=== PATIENT | female | born 1940 | race Caucasian/White ===

== ENCOUNTER 2018-11-12 18:18 | Inpatient (IN) | payer MEDICARE, MEDICAID ==
[~2018-11-12] VITALS: Ht 162.6 cm; Wt 77.9 kg
[2018-11-12] MEDS ORDERED: MORPHINE SULFATE 4 MG/ML, 1ML IVPush PRN (18:30)
[2018-11-12] MEDS ORDERED: ONDANSETRON 2MG/ML, 2ML IVPush ONE (18:30)
[2018-11-12] MEDS ORDERED: SODIUM CHLORIDE FLUSH 10ML SYR IVF ONE (18:30)
[2018-11-12] MEDS ORDERED: PLEASE ENTER ALLERGIES MC SCH (19:00)
[2018-11-12 19:26] LABS: BASOPHILS # (AUTO) 0.04 x10^3/uL (0-0.1); BASOPHILS % (AUTO) 0 % (0-1); EOSINOPHILS # (AUTO) 0.38 x10^3/uL (0-0.4); EOSINOPHILS % (AUTO) 4 % (1-7); LYMPHOCYTES # (AUTO) 1.54 x10^3/uL (1-3.4); LYMPHOCYTES % (AUTO) 18 % (22-44); MD NO; MEAN CORPUSCULAR HEMOGLOBIN 28.7 pg (27.0-34.8); MEAN CORPUSCULAR HGB CONC 31.9 g/dL (32.4-35.8); MEAN CORPUSCULAR VOLUME 89.9 fL (80-100); MEAN PLATELET VOLUME 7.9 fL (7.4-10.4); MONOCYTES # (AUTO) 0.54 x10^3/uL (0.2-0.8); MONOCYTES % (AUTO) 6 % (2-9); NEUTROPHILS # (AUTO) 6.28 x10^3/uL (1.8-6.8); NEUTROPHILS % (AUTO) 72 % (42-75); PLATELET COUNT 291 x10^3/uL (130-400); RED BLOOD COUNT 3.93 x10^6/uL (3.82-5.3); RED CELL DISTRIBUTION WIDTH 15.9 % (9.6-15.2)
[2018-11-12 19:33] LABS: INTERNATIONAL NORMALIZED RATIO 0.96 (0.93-1.1); PROTHROMBIN TIME 10.2 Seconds (9.6-11.5)
[2018-11-12 19:35] LABS: ALANINE AMINOTRANSFERASE 15 U/L (12-78); ALBUMIN 3.6 g/dL (3.4-5.0); ANION GAP 5 mmol/L (5-15); CALCIUM 9.2 mg/dL (8.5-10.1); CHLORIDE 98 mmol/L (98-107); CREATININE 0.92 mg/dL (0.55-1.02)
[2018-11-12 19:37] LABS: ALKALINE PHOSPHATASE 94 U/L (45-117); BILIRUBIN,TOTAL 0.2 mg/dL (0.2-1.0); TOTAL PROTEIN 7.4 g/dL (6.4-8.2)
[2018-11-12] MEDS ORDERED: MORPHINE SULFATE 4 MG/ML, 1ML ONE (20:16)
[2018-11-12] MEDS ORDERED: ONDANSETRON 2MG/ML, 2ML ONE (20:16)
[2018-11-12 22:00] VITALS: BP 106/67
[2018-11-12] MEDS ORDERED: CARB1TAB47 PO (22:04)
[2018-11-12] MEDS ORDERED: DONE10TA14 PO (22:04)
[2018-11-12] MEDS ORDERED: OLME20TA17 PO (22:04)
[2018-11-12] MEDS ORDERED: POTA20TA14 PO (22:04)
[2018-11-12] MEDS ORDERED: INSU100V8 SQ (22:04)
[2018-11-12] MEDS ORDERED: LAMO150T2 PO (22:04)
[2018-11-12] MEDS ORDERED: BUDE10.2 INH (22:04)
[2018-11-12] MEDS ORDERED: ALBU2.5V11 NEB (22:04)
[2018-11-12] MEDS ORDERED: LEVO25TA4 PO (22:04)
[2018-11-12] MEDS ORDERED: FURO40TA6 PO (22:04)
[2018-11-12] MEDS ORDERED: ASPI-650 PO (22:04)
[2018-11-12] MEDS ORDERED: UMEC62.5 INH (22:04)
[2018-11-12] MEDS ORDERED: VALS160T3 PO (22:04)
[2018-11-12] MEDS ORDERED: PREG75CA PO (22:04)
[2018-11-12] MEDS ORDERED: ALBU18HF INH (22:04)
[2018-11-12] MEDS ORDERED: PARO40TA61 PO (22:04)
[2018-11-12] MEDS ORDERED: FERR240T2 PO (22:04)
[2018-11-12] MEDS ORDERED: ONDANSETRON ODT 4 MG PO PRN (22:30)
[2018-11-12] MEDS ORDERED: DOCUSATE 100 MG CAPSULE PO PRN (22:30)
[2018-11-12] MEDS ORDERED: LIDODERM 5% PATCH TD PRN (22:30)
[2018-11-12] MEDS ORDERED: hydrALAzine 20 MG/ML, 1ML IVPush PRN (22:30)
[2018-11-12] MEDS ORDERED: ENALAPRILAT 1.25 MG/ML, 2ML IV PRN (22:30)
[2018-11-12] MEDS: DEXTROSE 50%, 50ML SYRINGE IVPush PRN ×2 (23:00→23:15)
[2018-11-12] MEDS ORDERED: DEXTROSE 50%, 50ML SYRINGE ONE (23:06)
[2018-11-13] VITALS (10 sets, daily range): BP systolic 90–113; BP diastolic 56–71
[2018-11-13] MEDS ORDERED: DEXTROSE 4 GM TAB.CHEW PO PRN
[2018-11-13] MEDS ORDERED: GLUCAGON 1 MG IM PRN
[2018-11-13] MEDS ORDERED: TEMPLATE NON-FORMULARY MED. (Albuterol Sulfate (Ventolin Hfa) 90 MCG) INH PRN (00:30)
[2018-11-13] MEDS ORDERED: ALBUTEROL SULFATE 2.5MG/0.5ML NEB PRN (00:30)
[2018-11-13] MEDS ORDERED: ALBUTEROL/IPRATROPIUM 2.5MG/0.5MG, 3 ML NPPB SCH (01:00)
[2018-11-13] MEDS ORDERED: SODIUM CHLORIDE 0.9% 1,000 ML IV ONE (01:00)
[2018-11-13] MEDS: CARBIDOPA/LEVODOPA 25 MG/100 MG TABLET PO SCH ×4 (01:05→21:41)
[2018-11-13] MEDS: DONEPEZIL 10 MG TABLET PO SCH ×2 (01:05→21:41)
[2018-11-13] MEDS: SODIUM CHLORIDE FLUSH 10ML SYR IVF SCH ×3 (01:05→21:42)
[2018-11-13] MEDS: OLMESARTAN MC SCH ×2 (01:30→09:00)
[2018-11-13] MEDS: PAROXETINE MC SCH ×2 (01:30→09:00)
[2018-11-13] MEDS: HYDROcodone/APAP 5/325 TABLET PO PRN ×3 (01:33→18:12)
[2018-11-13] MEDS: ALBUTEROL/IPRATROPIUM 2.5MG/0.5MG, 3 ML NPPB SCH ×4 (03:00→21:00)
[2018-11-13 05:55] LABS: BASOPHILS # (AUTO) 0.04 x10^3/uL (0-0.1); BASOPHILS % (AUTO) 1 % (0-1); CHLORIDE 98 mmol/L (98-107); EOSINOPHILS # (AUTO) 0.34 x10^3/uL (0-0.4); EOSINOPHILS % (AUTO) 5 % (1-7); LYMPHOCYTES # (AUTO) 1.11 x10^3/uL (1-3.4); LYMPHOCYTES % (AUTO) 15 % (22-44); MD NO; MEAN CORPUSCULAR HEMOGLOBIN 28.7 pg (27.0-34.8); MEAN CORPUSCULAR HGB CONC 32.1 g/dL (32.4-35.8); MEAN CORPUSCULAR VOLUME 89.6 fL (80-100); MEAN PLATELET VOLUME 7.6 fL (7.4-10.4); MONOCYTES # (AUTO) 0.59 x10^3/uL (0.2-0.8); MONOCYTES % (AUTO) 8 % (2-9); NEUTROPHILS # (AUTO) 5.46 x10^3/uL (1.8-6.8); NEUTROPHILS % (AUTO) 72 % (42-75); PLATELET COUNT 276 x10^3/uL (130-400); RED BLOOD COUNT 3.23 x10^6/uL (3.82-5.3); RED CELL DISTRIBUTION WIDTH 15.4 % (9.6-15.2)
[2018-11-13] MEDS: DEXTROSE 50%, 50ML SYRINGE IVPush PRN ×3 (05:56→16:33)
[2018-11-13] MEDS: LEVOTHYROXINE 25 MCG TABLET PO SCH (05:59)
[2018-11-13 06:03] LABS: ANION GAP 6 mmol/L (5-15); CALCIUM 8.4 mg/dL (8.5-10.1); CHOL/HDL RATIO 2.8; CHOLESTEROL, TOTAL 197 mg/dL (140-239); CREATININE 1.61 mg/dL (0.55-1.02); HDL CHOL % 36 % (28-40); HDL CHOLESTEROL (DIRECT) 71 mg/dL (40-60); LDL CHOLESTEROL,CALCULATED 97 mg/dL (54-169); LDL/HDL RATIO 1.4 (0.5-3.0); TRIGLYCERIDES 144 mg/dL (50-200); VLDL CHOLESTEROL 29 mg/dL (0-25)
[2018-11-13] MEDS: BUDESONIDE 0.5 MG/2 ML INHA NPPB SCH ×2 (08:20→21:00)
[2018-11-13] MEDS ORDERED: UMECLIDINIUM BROMIDE 62.5 MCG INH SCH (09:00)
[2018-11-13] MEDS ORDERED: PAROXETINE 10 MG TABLET PO SCH (09:00)
[2018-11-13] MEDS: PREGABALIN 75 MG CAPSULE PO SCH ×2 (09:00→21:41)
[2018-11-13] MEDS ORDERED: LOSARTAN 50MG TABLET PO SCH (09:00)
[2018-11-13] MEDS: ASPIRIN 81 MG TABLET CHEW PO/NG SCH (09:00)
[2018-11-13] MEDS ORDERED: TEMPLATE NON-FORMULARY MED. (Budesonide/Formoterol Fumarate (Symbicort 160-4.5 Mcg Inhaler INH SCH (09:00)
[2018-11-13] MEDS: VALSARTAN 160 MG TABLET PO SCH (09:00)
[2018-11-13] MEDS: LAMOTRIGINE 100 MG TABLET PO SCH ×2 (09:00→21:41)
[2018-11-13] MEDS: POTASSIUM CHLORIDE 20 MEQ TAB.ER.PRT PO SCH (09:00)
[2018-11-13] MEDS: FUROSEMIDE 40 MG TABLET PO SCH (09:00)
[2018-11-13] MEDS: FERROUS GLUCONATE 324 MG TABLET PO SCH (12:00)
[2018-11-13] MEDS: PAXIL MC SCH ×2 (14:18→22:18)
[2018-11-13] MEDS ORDERED: D5%-0.9% NACL 1,000 ML IV SCH (16:30)
[2018-11-13] MEDS: ACETAMINOPHEN 325 MG TABLET PO PRN (16:40)
[2018-11-13] MEDS: D5%-0.9% NACL 1,000 ML IV SCH (16:41)
[2018-11-14 00:55] VITALS: BP 139/63
[2018-11-14] MEDS: ALBUTEROL/IPRATROPIUM 2.5MG/0.5MG, 3 ML NPPB SCH ×4 (03:00→22:08)
[2018-11-14] MEDS: LEVOTHYROXINE 25 MCG TABLET PO SCH (05:12)
[2018-11-14 06:11] LABS: BASOPHILS # (AUTO) 0.02 x10^3/uL (0-0.1); BASOPHILS % (AUTO) 0 % (0-1); EOSINOPHILS # (AUTO) 0.22 x10^3/uL (0-0.4); EOSINOPHILS % (AUTO) 3 % (1-7); LYMPHOCYTES % (AUTO) 10 % (22-44); MD NO; MEAN CORPUSCULAR HEMOGLOBIN 28.7 pg (27.0-34.8); MEAN CORPUSCULAR HGB CONC 32.4 g/dL (32.4-35.8); MEAN CORPUSCULAR VOLUME 88.5 fL (80-100); MEAN PLATELET VOLUME 7.3 fL (7.4-10.4); MONOCYTES # (AUTO) 0.37 x10^3/uL (0.2-0.8); MONOCYTES % (AUTO) 5 % (2-9); NEUTROPHILS # (AUTO) 6.63 x10^3/uL (1.8-6.8); NEUTROPHILS % (AUTO) 82 % (42-75); PLATELET COUNT 248 x10^3/uL (130-400); RED BLOOD COUNT 3.34 x10^6/uL (3.82-5.3); RED CELL DISTRIBUTION WIDTH 15.8 % (9.6-15.2)
[2018-11-14] MEDS: D5%-0.9% NACL 1,000 ML IV SCH (06:17)
[2018-11-14] MEDS: PAXIL MC SCH ×2 (06:18→14:17)
[2018-11-14 06:24] LABS: ANION GAP 1 mmol/L (5-15); CHLORIDE 102 mmol/L (98-107)
[2018-11-14] MEDS: BUDESONIDE 0.5 MG/2 ML INHA NPPB SCH ×2 (07:15→22:08)
[2018-11-14 07:30] VITALS: BP 120/66
[2018-11-14] MEDS ORDERED: KETOROLAC 30 MG/1 ML IVPush PRN (07:30)
[2018-11-14] MEDS: ASPIRIN 81 MG TABLET CHEW PO/NG SCH (09:00)
[2018-11-14] MEDS: CARBIDOPA/LEVODOPA 25 MG/100 MG TABLET PO SCH ×3 (09:07→20:55)
[2018-11-14] MEDS: SODIUM CHLORIDE FLUSH 10ML SYR IVF SCH ×2 (09:07→20:30)
[2018-11-14] MEDS: POTASSIUM CHLORIDE 20 MEQ TAB.ER.PRT PO SCH (09:08)
[2018-11-14] MEDS: FUROSEMIDE 40 MG TABLET PO SCH (09:08)
[2018-11-14] MEDS: VALSARTAN 160 MG TABLET PO SCH (09:08)
[2018-11-14] MEDS: PREGABALIN 75 MG CAPSULE PO SCH ×2 (09:08→20:56)
[2018-11-14] MEDS: LAMOTRIGINE 100 MG TABLET PO SCH ×2 (09:08→20:55)
[2018-11-14] MEDS: FERROUS GLUCONATE 324 MG TABLET PO SCH (13:04)
[2018-11-14] MEDS ORDERED: PAXIL MC SCH (15:00)
[2018-11-14 15:08] VITALS: BP 124/66
[2018-11-14] MEDS: ACETAMINOPHEN 325 MG TABLET PO PRN (17:04)
[2018-11-14 20:00] VITALS: BP 149/71
[2018-11-14] MEDS: DONEPEZIL 10 MG TABLET PO SCH (20:54)
[2018-11-14] MEDS: PAROXETINE 10 MG TABLET PO SCH (20:55)
[2018-11-15 02:00] VITALS: BP 152/74
[2018-11-15] MEDS: ACETAMINOPHEN 325 MG TABLET PO PRN ×2 (02:24→14:43)
[2018-11-15] MEDS: ALBUTEROL/IPRATROPIUM 2.5MG/0.5MG, 3 ML NPPB SCH ×4 (03:40→20:53)
[2018-11-15 04:49] LABS: BASOPHILS # (AUTO) 0.03 x10^3/uL (0-0.1); BASOPHILS % (AUTO) 0 % (0-1); EOSINOPHILS # (AUTO) 0.38 x10^3/uL (0-0.4); EOSINOPHILS % (AUTO) 5 % (1-7); LYMPHOCYTES % (AUTO) 14 % (22-44); MD NO; MEAN CORPUSCULAR HEMOGLOBIN 28.8 pg (27.0-34.8); MEAN CORPUSCULAR HGB CONC 32.4 g/dL (32.4-35.8); MEAN PLATELET VOLUME 7.8 fL (7.4-10.4); MONOCYTES # (AUTO) 0.58 x10^3/uL (0.2-0.8); MONOCYTES % (AUTO) 8 % (2-9); NEUTROPHILS # (AUTO) 5.62 x10^3/uL (1.8-6.8); NEUTROPHILS % (AUTO) 73 % (42-75); PLATELET COUNT 222 x10^3/uL (130-400); RED BLOOD COUNT 3.34 x10^6/uL (3.82-5.3); RED CELL DISTRIBUTION WIDTH 15.4 % (9.6-15.2)
[2018-11-15 04:56] LABS: ANION GAP 5 mmol/L (5-15); CALCIUM 8.4 mg/dL (8.5-10.1); CHLORIDE 102 mmol/L (98-107); CREATININE 0.61 mg/dL (0.55-1.02)
[2018-11-15] MEDS: LEVOTHYROXINE 25 MCG TABLET PO SCH (06:10)
[2018-11-15] MEDS: BUDESONIDE 0.5 MG/2 ML INHA NPPB SCH ×2 (07:45→20:53)
[2018-11-15 08:18] VITALS: BP 151/76
[2018-11-15] MEDS: PREGABALIN 75 MG CAPSULE PO SCH ×2 (08:55→21:22)
[2018-11-15] MEDS: ASPIRIN 81 MG TABLET CHEW PO/NG SCH (08:55)
[2018-11-15] MEDS: CARBIDOPA/LEVODOPA 25 MG/100 MG TABLET PO SCH ×3 (08:55→21:22)
[2018-11-15] MEDS: VALSARTAN 160 MG TABLET PO SCH (08:56)
[2018-11-15] MEDS: PAROXETINE 10 MG TABLET PO SCH ×2 (08:56→21:22)
[2018-11-15] MEDS: POTASSIUM CHLORIDE 20 MEQ TAB.ER.PRT PO SCH (08:56)
[2018-11-15] MEDS: FUROSEMIDE 40 MG TABLET PO SCH (08:56)
[2018-11-15] MEDS: SODIUM CHLORIDE FLUSH 10ML SYR IVF SCH ×2 (08:57→21:23)
[2018-11-15] MEDS: LAMOTRIGINE 100 MG TABLET PO SCH ×2 (08:57→21:23)
[2018-11-15] MEDS: FERROUS GLUCONATE 324 MG TABLET PO SCH (12:50)
[2018-11-15] MEDS: INSULIN LISPRO 100 UNITS/ML, PEN SQ-INSULIN SCH ×3 (12:51→21:32)
[2018-11-15 14:46] VITALS: BP 151/80
[2018-11-15] MEDS: HYDROcodone/APAP 5/325 TABLET PO PRN ×2 (16:37→21:30)
[2018-11-15] MEDS: DONEPEZIL 10 MG TABLET PO SCH (21:22)
[2018-11-15 21:35] VITALS: BP 131/72
[2018-11-16 02:50] VITALS: BP 94/60
[2018-11-16] MEDS: ALBUTEROL/IPRATROPIUM 2.5MG/0.5MG, 3 ML NPPB SCH ×4 (02:55→21:30)
[2018-11-16] MEDS: LEVOTHYROXINE 25 MCG TABLET PO SCH (05:40)
[2018-11-16 05:41] VITALS: BP 110/69
[2018-11-16 06:02] LABS: BASOPHILS # (AUTO) 0.04 x10^3/uL (0-0.1); BASOPHILS % (AUTO) 1 % (0-1); EOSINOPHILS # (AUTO) 0.32 x10^3/uL (0-0.4); EOSINOPHILS % (AUTO) 5 % (1-7); LYMPHOCYTES # (AUTO) 1.14 x10^3/uL (1-3.4); LYMPHOCYTES % (AUTO) 18 % (22-44); MD NO; MEAN CORPUSCULAR HEMOGLOBIN 28.9 pg (27.0-34.8); MEAN CORPUSCULAR HGB CONC 32.4 g/dL (32.4-35.8); MEAN CORPUSCULAR VOLUME 89.2 fL (80-100); MEAN PLATELET VOLUME 7.8 fL (7.4-10.4); MONOCYTES # (AUTO) 0.43 x10^3/uL (0.2-0.8); MONOCYTES % (AUTO) 7 % (2-9); NEUTROPHILS # (AUTO) 4.52 x10^3/uL (1.8-6.8); NEUTROPHILS % (AUTO) 70 % (42-75); PLATELET COUNT 230 x10^3/uL (130-400); RED BLOOD COUNT 3.32 x10^6/uL (3.82-5.3); RED CELL DISTRIBUTION WIDTH 15.6 % (9.6-15.2)
[2018-11-16 06:08] LABS: ANION GAP 3 mmol/L (5-15); CHLORIDE 99 mmol/L (98-107); CREATININE 0.67 mg/dL (0.55-1.02)
[2018-11-16] MEDS: BUDESONIDE 0.5 MG/2 ML INHA NPPB SCH ×2 (07:35→21:30)
[2018-11-16 07:52] VITALS: BP 123/66
[2018-11-16] MEDS: INSULIN LISPRO 100 UNITS/ML, PEN SQ-INSULIN SCH ×4 (08:48→21:01)
[2018-11-16] MEDS: CARBIDOPA/LEVODOPA 25 MG/100 MG TABLET PO SCH ×3 (08:48→21:02)
[2018-11-16] MEDS: VALSARTAN 160 MG TABLET PO SCH (08:48)
[2018-11-16] MEDS: FUROSEMIDE 40 MG TABLET PO SCH (08:49)
[2018-11-16] MEDS: POTASSIUM CHLORIDE 20 MEQ TAB.ER.PRT PO SCH (08:49)
[2018-11-16] MEDS: PREGABALIN 75 MG CAPSULE PO SCH ×2 (08:49→21:01)
[2018-11-16] MEDS: LAMOTRIGINE 100 MG TABLET PO SCH ×2 (08:49→21:02)
[2018-11-16] MEDS: PAROXETINE 10 MG TABLET PO SCH ×2 (08:49→21:01)
[2018-11-16] MEDS: ASPIRIN 81 MG TABLET CHEW PO/NG SCH (08:49)
[2018-11-16] MEDS: SODIUM CHLORIDE FLUSH 10ML SYR IVF SCH ×2 (08:50→21:03)
[2018-11-16] MEDS: FERROUS GLUCONATE 324 MG TABLET PO SCH (11:29)
[2018-11-16 14:00] VITALS: BP 111/66
[2018-11-16 20:00] VITALS: BP 119/67
[2018-11-16] MEDS: DONEPEZIL 10 MG TABLET PO SCH (21:02)
[2018-11-16] MEDS: HYDROcodone/APAP 5/325 TABLET PO PRN (22:58)
[2018-11-17 02:14] VITALS: BP 125/68
[2018-11-17] MEDS: ALBUTEROL/IPRATROPIUM 2.5MG/0.5MG, 3 ML NPPB SCH ×4 (02:59→20:30)
[2018-11-17] MEDS: HYDROcodone/APAP 5/325 TABLET PO PRN ×2 (06:03→21:45)
[2018-11-17] MEDS: LEVOTHYROXINE 25 MCG TABLET PO SCH (06:05)
[2018-11-17 06:23] LABS: ANION GAP 3 mmol/L (5-15); CALCIUM 9.1 mg/dL (8.5-10.1); CHLORIDE 101 mmol/L (98-107); CREATININE 0.81 mg/dL (0.55-1.02)
[2018-11-17 06:29] VITALS: BP 129/71
[2018-11-17] MEDS: BUDESONIDE 0.5 MG/2 ML INHA NPPB SCH ×2 (07:30→20:40)
[2018-11-17] MEDS: SODIUM CHLORIDE FLUSH 10ML SYR IVF SCH ×2 (09:00→21:48)
[2018-11-17] MEDS: CARBIDOPA/LEVODOPA 25 MG/100 MG TABLET PO SCH ×3 (09:18→21:47)
[2018-11-17] MEDS: PAROXETINE 10 MG TABLET PO SCH ×2 (09:18→21:46)
[2018-11-17] MEDS: VALSARTAN 160 MG TABLET PO SCH (09:18)
[2018-11-17] MEDS: ASPIRIN 81 MG TABLET CHEW PO/NG SCH (09:19)
[2018-11-17] MEDS: PREGABALIN 75 MG CAPSULE PO SCH ×2 (09:19→21:47)
[2018-11-17] MEDS: POTASSIUM CHLORIDE 20 MEQ TAB.ER.PRT PO SCH (09:19)
[2018-11-17] MEDS: LAMOTRIGINE 100 MG TABLET PO SCH ×2 (09:20→21:47)
[2018-11-17] MEDS: FUROSEMIDE 40 MG TABLET PO SCH (09:20)
[2018-11-17] MEDS: INSULIN LISPRO 100 UNITS/ML, PEN SQ-INSULIN SCH ×4 (09:21→21:49)
[2018-11-17 12:05] VITALS: BP 139/72
[2018-11-17] MEDS: FERROUS GLUCONATE 324 MG TABLET PO SCH (12:08)
[2018-11-17 20:00] VITALS: BP 148/72
[2018-11-17] MEDS ORDERED: INSULIN GLARGINE 100 UNITS/ML, PEN SQ-INSULIN SCH ×2 (21:00)
[2018-11-17] MEDS: DONEPEZIL 10 MG TABLET PO SCH (21:46)
[2018-11-18 02:00] VITALS: BP 149/76
[2018-11-18] MEDS: ALBUTEROL/IPRATROPIUM 2.5MG/0.5MG, 3 ML NPPB SCH ×4 (02:57→21:20)
[2018-11-18] MEDS: HYDROcodone/APAP 5/325 TABLET PO PRN (06:18)
[2018-11-18] MEDS: LEVOTHYROXINE 25 MCG TABLET PO SCH (06:18)
[2018-11-18 06:19] LABS: BASOPHILS # (AUTO) 0.06 x10^3/uL (0-0.1); BASOPHILS % (AUTO) 1 % (0-1); EOSINOPHILS # (AUTO) 0.35 x10^3/uL (0-0.4); EOSINOPHILS % (AUTO) 6 % (1-7); LYMPHOCYTES # (AUTO) 1.09 x10^3/uL (1-3.4); LYMPHOCYTES % (AUTO) 17 % (22-44); MD NO; MEAN CORPUSCULAR HEMOGLOBIN 28.5 pg (27.0-34.8); MEAN CORPUSCULAR HGB CONC 31.8 g/dL (32.4-35.8); MEAN CORPUSCULAR VOLUME 89.5 fL (80-100); MEAN PLATELET VOLUME 7.4 fL (7.4-10.4); MONOCYTES # (AUTO) 0.49 x10^3/uL (0.2-0.8); MONOCYTES % (AUTO) 8 % (2-9); NEUTROPHILS # (AUTO) 4.37 x10^3/uL (1.8-6.8); NEUTROPHILS % (AUTO) 69 % (42-75); PLATELET COUNT 283 x10^3/uL (130-400); RED BLOOD COUNT 3.47 x10^6/uL (3.82-5.3); RED CELL DISTRIBUTION WIDTH 15.7 % (9.6-15.2)
[2018-11-18 06:19] LABS: ANION GAP 3 mmol/L (5-15); CALCIUM 9.2 mg/dL (8.5-10.1); CHLORIDE 100 mmol/L (98-107)
[2018-11-18 06:20] LABS: CREATININE 0.73 mg/dL (0.55-1.02)
[2018-11-18 06:23] VITALS: BP 134/71
[2018-11-18] MEDS: BUDESONIDE 0.5 MG/2 ML INHA NPPB SCH ×2 (07:55→21:20)
[2018-11-18] MEDS: LAMOTRIGINE 100 MG TABLET PO SCH ×2 (08:52→22:14)
[2018-11-18] MEDS: ASPIRIN 81 MG TABLET CHEW PO/NG SCH (08:53)
[2018-11-18] MEDS: CARBIDOPA/LEVODOPA 25 MG/100 MG TABLET PO SCH ×3 (08:53→22:12)
[2018-11-18] MEDS: PREGABALIN 75 MG CAPSULE PO SCH ×2 (08:53→22:19)
[2018-11-18] MEDS: VALSARTAN 160 MG TABLET PO SCH (08:54)
[2018-11-18] MEDS: POTASSIUM CHLORIDE 20 MEQ TAB.ER.PRT PO SCH (08:54)
[2018-11-18] MEDS: FUROSEMIDE 40 MG TABLET PO SCH (08:55)
[2018-11-18] MEDS: PAROXETINE 10 MG TABLET PO SCH ×2 (08:55→22:13)
[2018-11-18] MEDS: SODIUM CHLORIDE FLUSH 10ML SYR IVF SCH ×2 (08:58→21:00)
[2018-11-18] MEDS: INSULIN LISPRO 100 UNITS/ML, PEN SQ-INSULIN SCH ×4 (09:00→22:20)
[2018-11-18] MEDS: FERROUS GLUCONATE 324 MG TABLET PO SCH (12:17)
[2018-11-18 12:30] VITALS: BP 108/64
[2018-11-18 20:00] VITALS: BP 117/63
[2018-11-18] MEDS ORDERED: INSULIN GLARGINE 100 UNITS/ML, PEN SQ-INSULIN SCH (21:00)
[2018-11-18] MEDS: DONEPEZIL 10 MG TABLET PO SCH (22:20)
[2018-11-19 02:00] VITALS: BP 118/66
[2018-11-19] MEDS: ALBUTEROL/IPRATROPIUM 2.5MG/0.5MG, 3 ML NPPB SCH ×2 (02:20→07:20)
[2018-11-19] MEDS: ACETAMINOPHEN 325 MG TABLET PO PRN (05:40)
[2018-11-19] MEDS: LEVOTHYROXINE 25 MCG TABLET PO SCH (05:40)
[2018-11-19 07:00] VITALS: BP 133/75
[2018-11-19] MEDS: INSULIN LISPRO 100 UNITS/ML, PEN SQ-INSULIN SCH ×3 (07:00→16:02)
[2018-11-19] MEDS: BUDESONIDE 0.5 MG/2 ML INHA NPPB SCH (07:20)
[2018-11-19] MEDS: FUROSEMIDE 40 MG TABLET PO SCH (07:45)
[2018-11-19] MEDS: CARBIDOPA/LEVODOPA 25 MG/100 MG TABLET PO SCH ×2 (07:45→16:04)
[2018-11-19] MEDS: PREGABALIN 75 MG CAPSULE PO SCH (07:45)
[2018-11-19] MEDS: POTASSIUM CHLORIDE 20 MEQ TAB.ER.PRT PO SCH (07:45)
[2018-11-19] MEDS: LAMOTRIGINE 100 MG TABLET PO SCH (07:45)
[2018-11-19] MEDS: ASPIRIN 81 MG TABLET CHEW PO/NG SCH (07:45)
[2018-11-19] MEDS: SODIUM CHLORIDE FLUSH 10ML SYR IVF SCH (07:46)
[2018-11-19] MEDS: VALSARTAN 160 MG TABLET PO SCH (07:46)
[2018-11-19] MEDS: PAROXETINE 10 MG TABLET PO SCH (07:47)
[2018-11-19] MEDS: FERROUS GLUCONATE 324 MG TABLET PO SCH (12:04)
[2018-11-19 13:09] VITALS: BP 106/51
[2018-11-19] MEDS ORDERED: INSU100I13 SQ-INSULIN (14:57)
[2018-11-19] MEDS ORDERED: ALBUTEROL/IPRATROPIUM 2.5MG/0.5MG, 3 ML NPPB PRN (15:00)
[2018-11-19] MEDS ORDERED: ASPI-515 PO/NG (15:07)
== END 2018-11-19 18:19 | DRG 154 ==
LOC: ED 21:18 → EDIP 21:19 → ED 21:27 → 4EST 22:12
PROVIDERS: ADMIT Internal Medicine; ATTEND Internal Medicine
DX: S02.2XXA Fracture of nasal bones, initial encounter for closed fracture (principal); J96.20 Acute and chronic respiratory failure, unspecified whether with hypoxia or hypercapnia; F33.1 Major depressive disorder, recurrent, moderate; G40.909 Epilepsy, unspecified, not intractable, without status epilepticus; G20 Parkinson's disease; I25.10 Atherosclerotic heart disease of native coronary artery without angina pectoris; J44.9 Chronic obstructive pulmonary disease, unspecified; E11.649 Type 2 diabetes mellitus with hypoglycemia without coma; F03.90 Unspecified dementia, unspecified severity, without behavioral disturbance, psychotic disturbance, mood disturbance, and anxiety; R29.6 Repeated falls; E03.9 Hypothyroidism, unspecified; I11.9 Hypertensive heart disease without heart failure; S00.01XA Abrasion of scalp, initial encounter; I35.0 Nonrheumatic aortic (valve) stenosis; R13.10 Dysphagia, unspecified; G89.11 Acute pain due to trauma; W18.30XA Fall on same level, unspecified, initial encounter; Y93.89 Activity, other specified; Y99.8 Other external cause status; Y92.009 Unspecified place in unspecified non-institutional (private) residence as the place of occurrence of the external cause; Z79.4 Long term (current) use of insulin; Z91.81 History of falling; Z90.710 Acquired absence of both cervix and uterus; Z82.49 Family history of ischemic heart disease and other diseases of the circulatory system; Z90.49 Acquired absence of other specified parts of digestive tract; Z90.89 Acquired absence of other organs
CPT/HCPCS: 36415; 70450; 70486; 70551; 71045; 72072; 72110; 72125; 72170; 80048; 80053; 80061; 82962; 85025; 85610; 85730; 93005; 93306; 93880; 94640; 96374; G0378; J1885; J2405; J7042; J7620; J7626; 92523-GN; J1815; J7030